=== PATIENT | female | born 1960 | race American Indian/Alaskan Native ===

== ENCOUNTER 2017-09-10 13:15 | Emergency (ER) | payer OTHER ==
[~2017-09-10] VITALS: Ht 162.6 cm; Wt 81.6 kg
[2017-09-10] MEDS ORDERED: SIMVASTATIN20 MG (13:36)
[2017-09-10] MEDS ORDERED: COZAAR50 MG (13:37)
[2017-09-10] MEDS ORDERED: HYDROCHLOROTHIA25 MG (13:37)
[2017-09-10] MEDS ORDERED: SYNTHROID75 MCG (13:37)
== END 2017-09-10 14:52 | disposition home or self-care (01) ==
LOC: ER 13:15
DX: H10.89 Other conjunctivitis (principal)